=== PATIENT | male | born 2000 | race Hispanic/Latino ===

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

== ENCOUNTER 2020-06-06 05:27 | Emergency (ER) | payer SELFPAY | END 2020-06-06 05:54 | disposition home or self-care (01) | LOC: ERS 05:27 | DX: R11.2 Nausea with vomiting, unspecified (principal); F17.210 Nicotine dependence, cigarettes, uncomplicated | CPT/HCPCS: 99284 ==

== ENCOUNTER 2020-06-06 21:47 | Emergency (ER) | payer SELFPAY ==
[2020-06-06] MEDS ORDERED: Ondansetron PF 4 MG/2 ML Vial ONE (23:49)
[2020-06-07 00:01] LABS: Hemoglobin 15.5 g/dL (14.0-18.0); Mean Corpuscular HGB CONC 33.9 g/dL (32.0-36.0); Mean Corpuscular Hemoglobin 31.5 pg (27.0-31.0); Mean Corpuscular Volume 92.8 fL (78.0-98.0); Mean Platelet Volume 8.3 fL (7.4-10.4); Platelet Count 307 thou/uL (130-400); RBC Distribution Width 11.7 % (11.5-14.5); Red Blood Cell (RBC) Count 4.94 mill/uL (4.70-6.10)
[2020-06-07 00:10] LABS: ALT (SGPT) 18 U/L (8-55); AST (SGOT) 15 U/L (5-34); Albumin 4.7 g/dL (3.5-5.0); Alkaline Phosphatase 85 U/L (40-110); Anion Gap 14 mmol/L (10-20); BUN (Urea Nitrogen) 16 mg/dL (8.9-20.6); Calc. Creatinine Clearance 0 mL/min (70-130); Calcium 9.6 mg/dL (7.8-10.44); Carbon Dioxide 28 mmol/L (22-29); Chloride 102 mmol/L (98-107); Estimated GFR-MDRD Greater than 90; Glucose 112 mg/dL (70-105); Lipase 16 U/L (8-78); Potassium 3.3 mmol/L (3.5-5.1); Protein, Total 7.7 g/dL (6.0-8.3); Sodium 141 mmol/L (136-145)
[2020-06-07 00:21] LABS: Band 11 % (5-11); Lymphocytes 6 % (21-51); MDiff Complete? YES; Monocytes 6 % (0-10); Neutrophil 77 % (42-75); Platelet Morphology Comment Appears Adequate; RBC Morphology Normal
[2020-06-07] MEDS ORDERED: Ketorolac Tromethamine 30 MG/ML VIAL ONE (00:44)
== END 2020-06-07 01:48 | disposition home or self-care (01) ==
LOC: ERS 21:47
DX: R11.2 Nausea with vomiting, unspecified (principal); E86.0 Dehydration; F17.210 Nicotine dependence, cigarettes, uncomplicated; R10.9 Unspecified abdominal pain
CPT/HCPCS: 36415; 80053; 83690; 85025; 96374; 96375; J1885; J2405

== ENCOUNTER 2020-06-07 20:02 | Observation (INO) | payer SELFPAY ==
[~2020-06-07 20:02] MED LIST: Iopamidol-370 76% 500 ML 1 ML ONE
[2020-06-07 21:26] LABS: #Basophils 0.1 thou/uL (0.0-0.2); #Lymphocytes 1.8 thou/uL (1.20-3.40); #Monocytes 1.4 thou/uL (0.11-0.59); #Neutrophils 17.9 thou/uL (1.40-6.50); %Basophils 0.5 % (0.0-1.0); %Eosinophils 0.1 % (0.0-10.0); %Lymphocytes 8.7 % (21.0-51.0); %Monocytes 6.4 % (0.0-10.0); %Neutrophils 84.3 % (42.0-75.0); Hemoglobin 16.1 g/dL (14.0-18.0); Mean Corpuscular HGB CONC 34.2 g/dL (32.0-36.0); Mean Corpuscular Hemoglobin 31.7 pg (27.0-31.0); Mean Corpuscular Volume 92.5 fL (78.0-98.0); Mean Platelet Volume 8.3 fL (7.4-10.4); Platelet Count 313 thou/uL (130-400); RBC Distribution Width 11.5 % (11.5-14.5); Red Blood Cell (RBC) Count 5.07 mill/uL (4.70-6.10); White Blood Cell (WBC) Count 21.2 thou/uL (4.8-10.8)
[2020-06-07 21:47] LABS: ALT (SGPT) 19 U/L (8-55); AST (SGOT) 17 U/L (5-34); Albumin 4.9 g/dL (3.5-5.0); Alkaline Phosphatase 89 U/L (40-110); Anion Gap 18 mmol/L (10-20); BUN (Urea Nitrogen) 14 mg/dL (8.9-20.6); Bilirubin, Total 1.5 mg/dL (0.2-1.2); Calc. Creatinine Clearance 0 mL/min (70-130); Calcium 9.9 mg/dL (7.8-10.44); Carbon Dioxide 22 mmol/L (22-29); Chloride 103 mmol/L (98-107); Estimated GFR-MDRD Greater than 90; Globulin 3.2 g/dL (2.4-3.5); Glucose 123 mg/dL (70-105); Lipase 17 U/L (8-78); Potassium 3.3 mmol/L (3.5-5.1); Protein, Total 8.1 g/dL (6.0-8.3); Sodium 140 mmol/L (136-145)
--- NOTE | 2020-06-07 22:27 | CT ---
CT THORAX WITH CONTRAST CT ABDOMEN WITH CONTRAST CT PELVIS WITH CONTRAST: DATE: 06/07/2020 HISTORY: 20-year-old male with abdominal pain, nausea, vomiting, and chest pressure TECHNIQUE: IV iodinated contrast media: Administered Oral contrast media: Not administered Single phase scans of thorax, abdomen, and pelvis. FINDINGS: There is what appears to be a sliding hiatal hernia or dilated lower esophagus, filled with fluid, wi th mural thickening and mural enhancement, in the inferior aspect of the posterior mediastinum. Contiguous with that, the lower and mid esophagus also has diffuse mural thickening and increased mur al enhancement. There is periesophageal fat stranding in the mediastinum around the dilated portion of lower esophagus. There is no subcutaneous emphysema. Lungs are clear. No pleural effusion or pneumothorax. Trachea and major bronchi are patent and clear. No mediastinal lymphadenopathy, cardiomegaly, or pericardial effusion. Normal thoracic aorta. Liver, kidneys, adrenals, pancreas, spleen, appendix, urinary bladder, abdominal aorta, are normal. No small bowel dilation or colonic diverticulitis. No ascites or pneumoperitoneum. IMPRESSION: 1) esophagitis. 2) probable small sliding hiatal hernia. 3) endoscopy, on a nonemergent basis, may be useful.
[2020-06-07] MEDS ORDERED: Morphine 4 MG/ML VIAL ONE (22:33)
[2020-06-07] MEDS ORDERED: cefTRIAXone\\ROCEPHIN 1 GM VIAL ONE (22:33)
[2020-06-07] MEDS ORDERED: Ondansetron PF 4 MG/2 ML Vial ONE (22:33)
[2020-06-07] MEDS ORDERED: Pantoprazole 40 MG VIAL ONE (22:33)
[2020-06-07] MEDS ORDERED: Acetaminophen 325 MG TAB PO PRN (23:13)
[2020-06-07] MEDS ORDERED: Promethazine HCl 12.5 MG in Sodium Chloride 0.9% 50 ML IVPB PRN (23:14)
[2020-06-07 23:34] LABS: Bilirubin Negative (Negative); Blood, Urine Negative (Negative); Clarity Turbid (Clear); Glucose, Urine (Dipstick) Normal (Negative); Ketone, Urine 150 mg/dL (Negative); Leukocyte Negative Leu/uL (Negative); Nitrite Negative (Negative); Protein, Urine (Dipstick) 20 mg/dL (Neg-Trace); Urobilinogen Normal mg/dL (Less than 2); pH, Urine 8.5 (5.0-9.0)
[2020-06-07 23:35] LABS: Specific Gravity, Urine 1.043 (1.002-1.036)
[2020-06-07 23:43] LABS: Amphetamine Not Detected (NotDetected); Barbiturates Screen Not Detected (NotDetected); Benzodiazepine Screen Not Detected (NotDetected); Cocaine Metabolite Screen Not Detected (NotDetected); Medtox Control Line Valid? VALID (VALID); Medtox Reader # READER 1; Methadone Not Detected (NotDetected); Methamphetamine Not Detected (NotDetected); Opiate Screen Detected (NotDetected); Oxycodone Screen Not Detected (NotDetected); Phencyclidine (PCP) Not Detected (NotDetected); THC/Cannabinoid Screen Detected (NotDetected); Tricyclic Screen Not Detected (NotDetected)
--- NOTE | 2020-06-08 00:18 | PDOC.FPRHP ---
- History of Present Illness Chief Complaint: Intractable N/V History of Present Illness: Pt reports to ED today after visiting the ER two times this weekend N/V which started Sunday after patient admitted to ingesting "more alcohol than [he] normally drinks." He states that he initially thought he was hungover and was sent home with zofran which he admitted did not help with his symptoms. He has not been able to keep in PO intake. Today patient states that he had lost count of how many times he vomited. He admitted to seeing red spots in his emesis on Sunday and states that now his throat feels very sore. He admitted to CP earlier in the day which has not resolved as well as abdominal pain which is not as bot hersome today. He admits to using THC and states that his last use was Sunday, with his last intake of alcohol. ED Course: 1L NS, morphine, protonix, rocephin, zofran - Allergies/Adverse Reactions Allergies Allergy/AdvReac Type Severity Reaction Status Date / Time No Known Drug Allergies Allergy Unverified 06/07/20 23:23 - History PMHx: -none PSHx: -none FHx: -non contributory Social: -uses tobacco occasionally, uses MJ, drinks ETOH socially, no drug use - Review of Systems General: reports: weight/appetite/sleep changes. denies: fever/chills, night sweats, fatigue ENT: denies: nasal congestion, rhinorrhea Respiratory: denies: cough, congestion Cardiovascular: denies: chest pain, palpitation Gastrointestinal: reports: nausea, vomiting. denies: diarrhea, constipation Genitourinary: denies: incontinence, dysuria, polyuria Skin: denies: rashes Musculoskeletal: denies: pain, tenderness - Vital signs BP: 119/73, Pulse: 88, Resp: 18, Temp: 98.3 (Oral), Pain: 3, O2 sat: 98 on (Room Air), Time: 06/07/2020 23:20. - Physical Exam Constitutional: NAD, awake, alert and oriented HEENT: normocephalic and atraumatic, PERRLA Neck: supple Chest: no-tender to palpation Heart: RRR, normal S1/S2, no murmurs/rubs/gallops Lungs: CTAB, no respiratory distress, good air movement, no rales/rhonchi, no wheezing Abdomen: soft, non-tender, bowel sounds present, no masses/distention Musculoskeletal: normal structure Neurological: no focal deficit Skin: other (cap refill > 2 secs) Psychiatric: normal mood and affect, good judgment and insight, intact recent and remote memory FMR H&P: Results - Labs Result Diagrams: 06/08/20 02:35 06/08/20 02:34 Lab results: WBC 21.2 thou/uL (4.8-10.8) H 06/07/20 21:04 Hgb 16.1 g/dL (14.0-18.0) 06/07/20 21:04 Hct 46.9 % (42.0-52.0) 06/07/20 21:04 MCV 92.5 fL (78.0-98.0) 06/07/20 21:04 Plt Count 313 thou/uL (130-400) 06/07/20 21:04 Neutrophils % 84.3 % (42.0-75.0) H 06/07/20 21:04 Sodium 140 mmol/L (136-145) 06/07/20 21:04 Potassium 3.3 mmol/L (3.5-5.1) L 06/07/20 21:04 Chloride 103 mmol/L (98-107) 06/07/20 21:04 Carbon Dioxide 22 mmol/L (22-29) 06/07/20 21:04 BUN 14 mg/dL (8.9-20.6) 06/07/20 21:04 Creatinine 0.91 mg/dL (0.7-1.3) 06/07/20 21:04 Glucose 123 mg/dL (70-105) H 06/07/20 21:04 Lactic Acid 1.7 mmol/L (0.5-2.2) 06/07/20 21:46 Calcium 9.9 mg/dL (7.8-10.44) 06/07/20 21:04 Total Bilirubin 1.5 mg/dL (0.2-1.2) H 06/07/20 21:04 AST 17 U/L (5-34) 06/07/20 21:04 ALT 19 U/L (8-55) 06/07/20 21:04 Alkaline Phosphatase 89 U/L (40-110) 06/07/20 21:04 Serum Total Protein 8.1 g/dL (6.0-8.3) 06/07/20 21:04 Albumin 4.9 g/dL (3.5-5.0) 06/07/20 21:04 Lipase 17 U/L (8-78) 06/07/20 21:04 Urine Ketones 150 mg/dL (Negative) A 06/07/20 23:15 Urine Blood Negative (Negative) 06/07/20 23:15 Urine Nitrite Negative (Negative) 06/07/20 23:15 Ur Leukocyte Esterase Negative Chela/uL (Negative) 06/07/20 23:15 - EKG Interpretation EKG: sinus rhythm - Radiology Interpretation CT scan - abdomen Status: report reviewed by me (esophagitis, probable small sliding hital hernia) FMR H&P: A/P - Plan ##Intractable N/V -2/2 to alcohol, cannabinoid hyperemesis, esophagitis -lipase wnl -CT showed esophagitis and small sliding hiatal hernia -s/p morphine, protonix, zofran, and rocephin in ED, will not continue with rocephin as not concerned for varices -continue with nausea control with zofran and phenergan and morphine for pain -NPO at 12AM to consult GI in AM -continue mIVF s/p 1L bolus in ED -CMP in AM -ASE protocol, patient admitted last drink was Sat ##Mild Hypokalemia -K 3.3 -replete and recheck AM labs ##Hyperbilirubinemia -T bili 1.5 -CMP in AM ##Leukocytosis - WBC 21.2 - Likely 2/2 vomiting and dehydration. CBC in AM. ##UDS positive for opiates and cannabinoids - Received Morphine prior to testing - cannabinoids may have contributed to patient's N/V - encourage cessation CODE: FULL DIET: NPO at 12AM PCP: [facility] Dispo: admitted to medical. continue to monitor symptoms and consider GI consult in AM. FMR H&P: Upper Level - Plan Date/Time: 06/08/20 0018 Mr Guaman is a 20yo male who presented for the third time to the ED for nausea, vomiting and abdominal cramping. He was binge drinking Sat 06/06 where he drank entire bottle of whiskey went to sleep and nausea began at 1am. Thursday 06/07 he went to ED and was discharged with Zofran. He took it multiple times with minimal improvement. Abdominal pain worsened so he went back to the ED that evening. At that time he was treated with IVF, Zofran and Toradol. His symptoms improved and he was discharged home. Due to recurrence of symptoms he came in tonight. Tonight administered Zofran 4mg, Morphine 4mg which provided significant relief from nausea and vomiting. Reports the Morphine helped the most. Was also given 1L NS. Pantoprazole 80mg and Ceftriaxone for GI bleed cover age as he reported blood in emesis. PE: General: NAD however ill-appearing CV: RRR no murmur Pulm: CTA b/l Extremities: No edema, pedal pulses 2+ A/P: Intractable nausea - Lipase neg. DDx: Cannabinoid hyperemesis syndrome vs esophagitis vs alcohol induced. CT with sliding hiatal hernia or dilated lower esophagus, esophagitis. Will treat symptoms with Zofran and Phenergan PRN for nausea. Morphine PRN for pain and nausea. NPO for diet. Consult GI in AM to consider inpatient upper endoscopy. No acute bleed and no evidence of varices, will not continue abx. Monitor electrolytes and replace as needed. CMP in AM. Admit to medical Hyperbilirubinemia - CMP in AM. Likely 2/2 [place] syndrome vs alcohol use. Leukocytosis - Likely 2/2 vomiting and dehydration. CBC in AM. UDS positive for opiates - Received Morphine prior to testing Alcohol use - ASE protocol. Last drink Sat. Ativan PRN. No hx of withdrawals Cannabis use - Consider hyperemesis syndrome as above. Encourage cessation. I, Ariana Conklin, have evaluated this patient and agree with findings/plan as outlined by culinary intern resident. Pertinent changes/additions are listed here. Addendum - Attending - Attending Attestation Date/Time: 06/08/20 6789 I personally evaluated the patient and discussed the management with Dr. Amaro/Rubin. I agree with the History, Examination, Assessment and Plan documented above with any addition or exceptions noted below. Continue to control symptoms for intractable N/V. Possibly related to cannabis hyperemesis syndrome. will treat both. replete volume with IV fluids. Possible d/c tomorrow.
[2020-06-08] MEDS: Lactated Ringer's 1,000 ML IV SCH ×3 (00:23→16:21)
[2020-06-08] MEDS ORDERED: Potassium Chloride 40 MEQ in Sodium Chloride 0.9% 250 ML 250 ML IVPB SCH (01:00)
[2020-06-08 02:50] LABS: Hemoglobin 14.2 g/dL (14.0-18.0); Mean Corpuscular HGB CONC 34.1 g/dL (32.0-36.0); Mean Corpuscular Hemoglobin 31.8 pg (27.0-31.0); Mean Corpuscular Volume 93.1 fL (78.0-98.0); Mean Platelet Volume 7.9 fL (7.4-10.4); Platelet Count 273 thou/uL (130-400); RBC Distribution Width 11.5 % (11.5-14.5); Red Blood Cell (RBC) Count 4.48 mill/uL (4.70-6.10); White Blood Cell (WBC) Count 20.7 thou/uL (4.8-10.8)
[2020-06-08 03:01] LABS: Band 24 % (5-11); Lymphocytes 9 % (21-51); MDiff Complete? YES; Monocytes 6 % (0-10); Neutrophil 61 % (42-75); Platelet Morphology Comment Appears Adequate
[2020-06-08 03:22] LABS: ALT (SGPT) 13 U/L (8-55); AST (SGOT) 16 U/L (5-34); Alkaline Phosphatase 72 U/L (40-110); Anion Gap 16 mmol/L (10-20); BUN (Urea Nitrogen) 13 mg/dL (8.9-20.6); Bilirubin, Total 0.9 mg/dL (0.2-1.2); Calc. Creatinine Clearance 0 mL/min (70-130); Calcium 8.4 mg/dL (7.8-10.44); Carbon Dioxide 22 mmol/L (22-29); Chloride 108 mmol/L (98-107); Estimated GFR-MDRD Greater than 90; Globulin 2.7 g/dL (2.4-3.5); Glucose 113 mg/dL (70-105); Potassium 4.1 mmol/L (3.5-5.1); Protein, Total 6.7 g/dL (6.0-8.3); Sodium 142 mmol/L (136-145)
[2020-06-08] MEDS ORDERED: Morphine 4 MG/ML VIAL ONE (04:34)
[2020-06-08] MEDS: Morphine 2 MG/ML VIAL SLOW IVP PRN ×3 (04:36→23:05)
[2020-06-08] MEDS: Ondansetron PF 4 MG/2 ML Vial IVP PRN ×3 (04:37→23:02)
[2020-06-08] MEDS ORDERED: Ondansetron PF 4 MG/2 ML Vial ONE (04:38)
[2020-06-08] MEDS ORDERED: Haloperidol Lactate 5 MG/ML VIAL SLOW IVP SCH (08:45)
[2020-06-08] MEDS ORDERED: Famotidine/PF 20 mg/2ml Vial SLOW IVP SCH (09:00)
[2020-06-08] MEDS ORDERED: Haloperidol Lactate 5 MG/ML VIAL ONE (09:19)
[2020-06-08] MEDS ORDERED: Famotidine/PF 20 mg/2ml Vial ONE (09:19)
[2020-06-08] MEDS ORDERED: Multivitamin W/ Minerals 1 TAB ONE (10:33)
[2020-06-08] MEDS ORDERED: Promethazine HCl 25 MG/ML VIAL ONE (10:37)
--- NOTE | 2020-06-08 10:57 | PDOC.BPN ---
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 added capsacin cream as recommended for more treatment for the cannabis hyperemesis. will start a clear liquid diet today. if tolerates well, plan is d/c home with 8 weeks PPI use and f/u outpt with GI.
[2020-06-08] MEDS ORDERED: Mag-Al 1200 mg/1200 mg/30 ML UDCUP ONE (12:36)
[2020-06-08] MEDS ORDERED: Lidocaine Viscous Sol 2% 15 ml UD Cup ONE (12:36)
[2020-06-08] MEDS: Multivitamin W/ Minerals 1 TAB PO SCH (12:45)
[2020-06-08 14:17] LABS: SARS-CoV-2 MS2 Positive; SARS-CoV-2 N Gene Negative; SARS-CoV-2 S Gene Negative; SARS-CoV-2 by NAA Not Detected (NotDetected); SARS-CoV-2 orf1ab Negative
[2020-06-08] MEDS: Capsaicin 0.025% Cream 60 gm Tube TOP PRN (18:10)
--- NOTE | 2020-06-09 06:26 | PDOC.FM ---
- Subjective Subjective: No acute events overnight. Patient reports improvement in his N/V and abdominal pain. He does reports an episode of abdominal pain overnight that spread to his chest. He tolerated minimal liquids overnight, but reports abdominal pain with jello. Passing gas. No N/V overnight. - Objective MAR Reviewed: Yes Vital Signs & Weight: Vital Signs (12 hours) Temp Pulse Resp BP Pulse Ox 06/08/20 20:50 98.1 F 90 20 130/64 99 Weight Weight 220 g I&O: 06/07/20 06/08/20 06/09/20 06:59 06:59 06:59 Intake Total 991 Output Total 275 Balance 716 Result Diagrams: 06/09/20 06:51 06/09/20 06:51 Phys Exam - Physical Examination Constitutional: NAD HEENT: moist MMs Neck: supple, full ROM Respiratory: no wheezing, no rales, no rhonchi, clear to auscultation bilateral Cardiovascular: RRR, no significant murmur Gastrointestinal: soft, non-tender, no distention, positive bowel sounds Musculoskeletal: no edema Neurological: moves all 4 limbs Psychiatric: normal affect Skin: no rash Dx/Plan - Plan Plan: Intractable N/V -2/2 to alcohol, cannabinoid hyperemesis, esophagitis -lipase wnl -CT: esophagitis and small sliding hiatal hernia -s/p morphine, protonix, zofran, and rocephin in ED, will not continue with rocephin as not concerned for varices -continue with nausea control with zofran and phenergan and morphine for pain -received haldol 2 mg today for the Cyclic vomiting syndrome from cannabis use -added capsacin cream as recommended for more treatment for the cannabis hyperemesis, reports relief -started on clear liquid diet yesterday, will attempt bland diet today -GI cocktail ordered -if tolerated diet, likely DC home today with PPI x 8 wks and outpt GI f/u -ASE protocol, patient admitted last drink was Sat Mild Hypokalemia, resolved -K 3.3 > 4.1 > 3.6 -will monitor and replace as needed Hyperbilirubinemia, resolved -T bili 1.5 > 0.9 > 1.2 -possible Gilbert's Leukocytosis, improving - WBC 21.2 > 14.4 - Likely 2/2 vomiting and dehydration. CBC in AM. UDS positive for opiates and cannabinoids - Received Morphine prior to testing - cannabinoids may have contributed to patient's N/V - encourage cessation Dispo: likely dc home pending PO intake Addendum - Attending - Attending Attestation Date/Time: 06/09/20 6718 I personally evaluated the patient and discussed the management with . [] I agree with the History, Examination, Assessment and Plan documented above with any addition or exceptions noted below. He is complaining of 10/10 pain which he say only a shower will help. Haldol helped yesterday for pain. will repeat today. If no improvement, will consult GI for recommendations. Repeat CXR to evaluate for free air in the mediastinum and lipase to check for superimposed pancreatitis. Patient states a shower it the only thing that is helping his pain. Labs otherwise WNL. Will also try SL nitro for esophageal spasm. Given the significant inflammation on his CT, I anticipte he will experience discomfort for a while while his stomach and esophagus heal.
[2020-06-09 08:09] LABS: ALT (SGPT) 11 U/L (8-55); AST (SGOT) 13 U/L (5-34); Alkaline Phosphatase 72 U/L (40-110); Anion Gap 13 mmol/L (10-20); BUN (Urea Nitrogen) 10 mg/dL (8.9-20.6); Bilirubin, Total 1.2 mg/dL (0.2-1.2); Calc. Creatinine Clearance 0 mL/min (70-130); Calcium 8.8 mg/dL (7.8-10.44); Carbon Dioxide 22 mmol/L (22-29); Chloride 104 mmol/L (98-107); Estimated GFR-MDRD Greater than 90; Globulin 2.7 g/dL (2.4-3.5); Glucose 77 mg/dL (70-105); Potassium 3.6 mmol/L (3.5-5.1); Protein, Total 6.7 g/dL (6.0-8.3); Sodium 135 mmol/L (136-145)
[2020-06-09] MEDS: Lactated Ringer's 1,000 ML IV SCH ×3 (08:22→17:12)
[2020-06-09 08:32] LABS: Band 8 % (5-11); Eosinophils 1 % (0-10); Hemoglobin 14.4 g/dL (14.0-18.0); Lymphocytes 27 % (21-51); MDiff Complete? YES; Mean Corpuscular HGB CONC 34.7 g/dL (32.0-36.0); Mean Corpuscular Hemoglobin 32.5 pg (27.0-31.0); Mean Corpuscular Volume 93.7 fL (78.0-98.0); Mean Platelet Volume 8.7 fL (7.4-10.4); Monocytes 2 % (0-10); Neutrophil 49 % (42-75); Platelet Count 242 thou/uL (130-400); Platelet Morphology Comment Appears Adequate; RBC Distribution Width 11.3 % (11.5-14.5); RBC Morphology Normal; Reactive Lymphocytes 13 % (0-10); Red Blood Cell (RBC) Count 4.44 mill/uL (4.70-6.10); White Blood Cell (WBC) Count 14.4 thou/uL (4.8-10.8)
[2020-06-09] MEDS ORDERED: Lidocaine 2% Viscous Solution 10 ML, Aluminum & Magnesium Hydroxide 30 ML SSW SCH (08:45)
[2020-06-09] MEDS ORDERED: FLU VACC QS2020-21(6MOS UP)/PF 60 MCG/0.5 ML SYRINGE IM ONE (09:00)
[2020-06-09] MEDS: Morphine 2 MG/ML VIAL SLOW IVP PRN (09:05)
[2020-06-09] MEDS: Capsaicin 0.025% Cream 60 gm Tube TOP PRN (09:12)
[2020-06-09] MEDS: Multivitamin W/ Minerals 1 TAB PO SCH (09:15)
[2020-06-09] MEDS: Ondansetron PF 4 MG/2 ML Vial IVP PRN ×2 (09:36→18:26)
[2020-06-09] MEDS ORDERED: Haloperidol Lactate 5 MG/ML VIAL SLOW IVP PRN (10:39)
[2020-06-09] MEDS ORDERED: Nitroglycerin 0.4 MG TAB (25 Tab Bottle) SL SCH (11:00)
--- NOTE | 2020-06-09 13:41 | RAD ---
PORTABLE CHEST: 06/09/20 HISTORY: Chest pain. Lungs are clear. No infiltrate or vascular congestion. Heart and mediastinum unremarkable. IMPRESSION: No acute process. POS: [facility]
[2020-06-09] MEDS ORDERED: Lidocaine Viscous Sol 2% 15 ml UD Cup SSW PRN (14:03)
[2020-06-09] MEDS ORDERED: Mag-Al Plus 1200 MG/1200 MG/120 MG/30 ML UDCUP PO PRN (14:04)
[2020-06-09] MEDS: Sucralfate 1 GM TAB PO SCH ×2 (17:11→21:00)
[2020-06-10] MEDS: Lactated Ringer's 1,000 ML IV SCH ×2 (02:52→12:44)
[2020-06-10 05:54] LABS: Band 2 % (5-11); Eosinophils 2 % (0-10); Hemoglobin 14.7 g/dL (14.0-18.0); Lymphocytes 19 % (21-51); MDiff Complete? YES; Mean Corpuscular HGB CONC 32.7 g/dL (32.0-36.0); Mean Corpuscular Hemoglobin 29.9 pg (27.0-31.0); Mean Corpuscular Volume 91.6 fL (78.0-98.0); Mean Platelet Volume 7.6 fL (7.4-10.4); Monocytes 5 % (0-10); Neutrophil 70 % (42-75); Platelet Count 278 thou/uL (130-400); Platelet Morphology Comment Appears Adequate; RBC Distribution Width 11.3 % (11.5-14.5); Reactive Lymphocytes 2 % (0-10); Red Blood Cell (RBC) Count 4.92 mill/uL (4.70-6.10); White Blood Cell (WBC) Count 15.6 thou/uL (4.8-10.8)
[2020-06-10 05:56] LABS: ALT (SGPT) 10 U/L (8-55); AST (SGOT) 13 U/L (5-34); Albumin 4.2 g/dL (3.5-5.0); Alkaline Phosphatase 75 U/L (40-110); Anion Gap 12 mmol/L (10-20); BUN (Urea Nitrogen) 8 mg/dL (8.9-20.6); Calc. Creatinine Clearance 0 mL/min (70-130); Carbon Dioxide 28 mmol/L (22-29); Chloride 102 mmol/L (98-107); Estimated GFR-MDRD Greater than 90; Globulin 2.8 g/dL (2.4-3.5); Glucose 96 mg/dL (70-105); Potassium 3.3 mmol/L (3.5-5.1); Sodium 139 mmol/L (136-145)
--- NOTE | 2020-06-10 06:04 | PDOC.FM ---
- Subjective Subjective: Per nursing, patient did not have any episodes of N/V overnight. She reports that he did well and had no complaints. Patient took multiple showers yesterday with relief. On my rounds this morning, patient was resting comfortably in bed. He was very pleasant and smiling. He denied any current abdominal pain or chest pain. He confirmed that he was able to tolerate the jello. - Objective MAR Reviewed: Yes Vital Signs & Weight: Vital Signs (12 hours) Temp Pulse Resp BP BP Pulse Ox 06/10/20 00:20 98.6 F 58 L 18 131/75 06/09/20 23:32 98.6 F 58 L 18 131/75 06/09/20 19:23 98.7 F 65 12 130/79 100 Weight Weight 220 g I&O: 06/08/20 06/09/20 06/10/20 06:59 06:59 06:59 Intake Total 2431 2034 Output Total 275 Balance 2155 2034 Result Diagrams: 06/10/20 05:24 06/10/20 05:23 Phys Exam - Physical Examination Constitutional: NAD HEENT: moist MMs Neck: no JVD, supple, full ROM Respiratory: no wheezing, no rales, no rhonchi, clear to auscultation bilateral Cardiovascular: RRR, no significant murmur Gastrointestinal: soft, non-tender, no distention, positive bowel sounds Musculoskeletal: no edema Neurological: moves all 4 limbs Psychiatric: normal affect Skin: no rash Dx/Plan - Plan Plan: Intractable N/V -2/2 to alcohol, cannabinoid hyperemesis, esophagitis -lipase wnl x2 -CT: esophagitis and small sliding hiatal hernia -CXR yesterday: normal -s/p morphine, protonix, zofran, and rocephin in ED, rocephin not continued -will schedule phenergan to be given before meals today, zofran and morphine still available prn -haldol prn and capsacin cream as recommended for treatment for the cannabis hyperemesis, reports relief -able to tolerate jello overnight, gets relief with hot showed, encouraged showers as needed -increased PPI to BID, added maalox (prn) and sucralfate -if tolerating diet, likely DC home today with PPI x 8 wks and outpt GI f/u -ASE protocol, patient admitted last drink was Sat -will DC fluids Mild Hypokalemia, resolved -K 3.3 > 4.1 > 3.6 > 3.3 -will replace -will monitor and replace as needed Hyperbilirubinemia, resolved -T bili 1.5 > 0.9 > 1.2 -possible Gilbert's Leukocytosis, improving - WBC 21.2 > 14.4 > 15.6 - Likely 2/2 vomiting and dehydration. CBC in AM. UDS positive for opiates and cannabinoids - Received Morphine prior to testing - cannabinoids may have contributed to patient's N/V - encourage cessation Dispo: likely dc home pending PO intake Addendum - Attending - Attending Attestation Date/Time: 06/10/20 [id number] I personally evaluated the patient and discussed the management with Dr. Paredes. I agree with the History, Examination, Assessment and Plan documented above with any addition or exceptions noted below. D/C home.
[2020-06-10] MEDS ORDERED: Potassium Chloride 20 MEQ in Premix Bag 1 BAG IVPB SCH (08:00)
[2020-06-10] MEDS: Sucralfate 1 GM TAB PO SCH ×2 (08:25→12:44)
[2020-06-10] MEDS: Multivitamin W/ Minerals 1 TAB PO SCH (08:25)
[2020-06-10] MEDS ORDERED: FLU VACC QS2020-21(6MOS UP)/PF 60 MCG/0.5 ML SYRINGE IM ONE (11:15)
[2020-06-10] MEDS ORDERED: Promethazine HCl 12.5 MG in Sodium Chloride 0.9% 50 ML IVPB SCH (11:30)
[2020-06-10 11:46] VITALS: BP 139/94; TEMP 98.4
--- NOTE | 2020-06-12 15:33 | EKG ---
Test Reason : Blood Pressure : / mmHG Vent. Rate : 059 BPM Atrial Rate : 059 BPM P-R Int : 134 ms QRS Dur : 114 ms QT Int : 406 ms P-R-T Axes : -64 061 053 degrees QTc Int : 401 ms Normal sinus rhythm with occasional Premature ventricular complexes Otherwise normal EKG Confirmed by SAGAR ACKERMAN, GHAZALA Lynn ([id number]), advertising editor CARLOS CALDERON ([id number]) on 06/12/2020 3:33:14 PM Referred By: Confirmed By:GHAZALA KIETH MD
== END 2020-06-10 13:10 | disposition home or self-care (01) ==
LOC: ERS 20:02 → INTOOBSV 22:44 → ERHOLD 22:44 → 3SW 06-08 14:09
PROVIDERS: ADMIT Family Medicine; ATTEND Family Medicine
DX: K20.90 Esophagitis, unspecified without bleeding (principal); R11.2 Nausea with vomiting, unspecified; F12.10 Cannabis abuse, uncomplicated; R11.15 Cyclical vomiting syndrome unrelated to migraine; R07.89 Other chest pain; K44.9 Diaphragmatic hernia without obstruction or gangrene; E87.6 Hypokalemia; E80.6 Other disorders of bilirubin metabolism; D72.829 Elevated white blood cell count, unspecified; F17.210 Nicotine dependence, cigarettes, uncomplicated; Z20.828 Contact with and (suspected) exposure to other viral communicable diseases
CPT/HCPCS: 36415; 71045; 71260; 74177; 80053; 80306; 80307; 81003; 83605; 83690; 84484; 85007; 85025; 85027; 87635; 93005; 96374; 96375; 96376; C9113; G0378; J0696; J1630; J2270; J2405; J2550; J3411; J3480; J7050; Q9967; S0028; U0003

== ENCOUNTER 2022-11-10 19:03 | Emergency (ER) | payer BC, SELFPAY ==
[2022-11-10] MEDS ORDERED: Ondansetron PF 4 MG/2 ML Vial ONE (19:48)
[2022-11-10 20:14] LABS: Hemoglobin 16.6 g/dL (14.0-18.0); Mean Corpuscular Hemoglobin 31.9 pg (27.0-31.0); Mean Corpuscular Volume 91.1 fl (78.0-98.0); Mean Platelet Volume 7.8 fL (7.4-10.4); Platelet Count 307 10x3/uL (130-400); RBC Distribution Width 11.6 % (11.5-14.5); Red Blood Cell (RBC) Count 5.21 mill/uL (4.70-6.10); White Blood Cell (WBC) Count 20.4 10x3/uL (4.8-10.8)
[2022-11-10] MEDS ORDERED: Mag-Al 1200 mg/1200 mg/30 ML UDCUP ONE (20:21)
[2022-11-10] MEDS ORDERED: Pantoprazole 40 MG VIAL ONE (20:21)
[2022-11-10] MEDS ORDERED: Lidocaine Viscous Sol 2% 15 ml UD Cup ONE (20:21)
[2022-11-10 20:26] LABS: ALT (SGPT) 22 U/L (8-55); AST (SGOT) 19 U/L (5-34); Albumin 5.3 g/dL (3.5-5.0); Alkaline Phosphatase 109 U/L (40-110); Anion Gap 16 mmol/L (10-20); BUN (Urea Nitrogen) 11 mg/dL (8.9-20.6); Bilirubin, Total 0.6 mg/dL (0.2-1.2); Calc. Creatinine Clearance 0 mL/min (70-130); Calcium 10.8 mg/dL (7.8-10.44); Carbon Dioxide 25 mmol/L (22-29); Chloride 101 mmol/L (98-107); Estimated GFR 120; Globulin 3.6 g/dL (2.4-3.5); Glucose 113 mg/dL (70-105); Lipase 23 U/L (8-78); Potassium 3.4 mmol/L (3.5-5.1); Protein, Total 8.9 g/dL (6.0-8.3); Sodium 139 mmol/L (136-145)
[2022-11-10 20:41] LABS: Lymphocytes 20 % (21-51); MDiff Complete? YES; Monocytes 7 % (0-10); Neutrophil 73 % (42-75); Platelet Morphology Comment Appears Adequate; Stomatocytes SLIGHT = 2-5 cells (100X) (0-1/hpf)
[2022-11-10] MEDS ORDERED: Haloperidol Lactate 5 MG/ML VIAL ONE (20:46)
[2022-11-10] MEDS ORDERED: Ketorolac Tromethamine 30 MG/ML VIAL ONE (20:46)
[2022-11-10 20:59] LABS: Bacteria/HPF None Seen HPF (None Seen); Bilirubin Negative (Negative); Blood, Urine Negative (Negative); Clarity Clear (Clear); Glucose, Urine (Dipstick) Normal (Negative); Ketone, Urine 40 mg/dL (Negative); Leukocyte Negative Leu/uL (Negative); Nitrite Negative (Negative); Protein, Urine (Dipstick) 70 mg/dL (Neg-Trace); RBC/HPF 0-3 HPF (0-3); Specific Gravity, Urine 1.029 (1.002-1.036); Squamous Epithelial None Seen HPF (0-3); Urobilinogen Normal mg/dL (Less than 2); WBC/HPF 0-3 HPF (0-3); pH, Urine 8.5 (5.0-9.0)
== END 2022-11-10 23:10 | disposition home or self-care (01) ==
LOC: ERS 19:03
DX: R10.13 Epigastric pain (principal); F12.10 Cannabis abuse, uncomplicated; R11.2 Nausea with vomiting, unspecified; D72.829 Elevated white blood cell count, unspecified; Z87.891 Personal history of nicotine dependence
CPT/HCPCS: 80053; 81003; 81015; 83690; 85025; 96361; 96374; 96375; C9113; J1630; J1885; J2405

== ENCOUNTER 2023-06-04 13:25 | Emergency (ER) | payer BC, SELFPAY ==
[2023-06-04 13:57] LABS: #Basophils 0.1 thou/uL (0.0-0.2); #Eosinphils 0.1 thou/uL (0.0-0.7); #Monocytes 1.3 thou/uL (0.11-0.59); #Neutrophils 14.4 thou/uL (1.40-6.50); %Basophils 0.3 % (0.0-1.0); %Eosinophils 0.6 % (0.0-10.0); %Lymphocytes 12.9 % (21.0-51.0); %Neutrophils 78.8 % (42.0-75.0); Hematocrit 43.9 % (42.0-52.0); Hemoglobin 14.9 g/dL (14.0-18.0); Mean Corpuscular HGB CONC 33.9 g/dL (32.0-36.0); Mean Corpuscular Volume 91.3 fl (78.0-98.0); Platelet Count 348 10x3/uL (130-400); RBC Distribution Width 12.5 % (11.5-14.5); Red Blood Cell (RBC) Count 4.81 mill/uL (4.70-6.10); White Blood Cell (WBC) Count 18.2 10x3/uL (4.8-10.8)
[2023-06-04 14:21] LABS: ALT (SGPT) 17 U/L (8-55); AST (SGOT) 16 U/L (5-34); Albumin 5.2 g/dL (3.5-5.0); Alkaline Phosphatase 82 U/L (40-110); Anion Gap 14 mmol/L (10-20); BUN (Urea Nitrogen) 10 mg/dL (8.9-20.6); Bilirubin, Total 0.8 mg/dL (0.2-1.2); Calc. Creatinine Clearance 0 mL/min (70-130); Calcium 9.8 mg/dL (7.8-10.44); Carbon Dioxide 23 mmol/L (22-29); Chloride 105 mmol/L (98-107); Estimated GFR 124; Globulin 2.4 g/dL (2.4-3.5); Glucose 126 mg/dL (70-105); Lipase 20 U/L (8-78); Potassium 3.3 mmol/L (3.5-5.1); Protein, Total 7.6 g/dL (6.0-8.3); Sodium 139 mmol/L (136-145)
[2023-06-04] MEDS ORDERED: Ondansetron PF 4 MG/2 ML Vial ONE (14:36)
[2023-06-04] MEDS ORDERED: Pantoprazole 40 MG VIAL ONE (14:36)
[2023-06-04] MEDS ORDERED: Dicyclomine 20 MG/2 ML VIAL ONE (14:36)
[2023-06-04 15:31] LABS: Bacteria/HPF None Seen HPF (None Seen); Bilirubin Negative (Negative); Blood, Urine Negative (Negative); CAUTI Indications for Culture Pelvic or flank pain; Clarity Extra Turbid (Clear); Glucose, Urine (Dipstick) Normal (Negative); Ketone, Urine 40 mg/dL (Negative); Leukocyte Negative Leu/uL (Negative); Nitrite Negative (Negative); Protein, Urine (Dipstick) 30 mg/dL (Neg-Trace); RBC/HPF 0-3 HPF (0-3); Specific Gravity, Urine 1.026 (1.002-1.036); Squamous Epithelial 0-3 HPF (0-3); Urobilinogen Normal mg/dL (Less than 2); WBC/HPF None Seen HPF (0-3); pH, Urine 8.5 (5.0-9.0)
[2023-06-04 15:32] LABS: Urine Culture Reflex No No
[2023-06-04 15:36] LABS: Amphetamine Not Detected (NotDetected); Barbiturates Screen Not Detected (NotDetected); Benzodiazepine Screen Not Detected (NotDetected); Cocaine Metabolite Screen Not Detected (NotDetected); Methadone Not Detected (NotDetected); Methamphetamine Not Detected (NotDetected); Opiate Screen Detected (NotDetected); Oxycodone Screen Not Detected (NotDetected); Phencyclidine (PCP) Not Detected (NotDetected); THC/Cannabinoid Screen Detected (NotDetected); Tricyclic Screen Not Detected (NotDetected)
[2023-06-04] MEDS ORDERED: diphenhydrAMINE 50 MG/ML VIAL ONE (15:45)
[2023-06-04] MEDS ORDERED: Prochlorperazine 10 MG/2 ML VIAL ONE (15:46)
== END 2023-06-04 17:59 | disposition home or self-care (01) ==
LOC: ERS 13:25
DX: R10.13 Epigastric pain (principal); R11.10 Vomiting, unspecified; Z87.891 Personal history of nicotine dependence
CPT/HCPCS: 36415; 80053; 80306; 81001; 83690; 85025; 96372; 96374; 96375; C9113; J0780; J1200; J2405

== ENCOUNTER 2025-02-18 08:12 | Emergency (ER) | payer OTHER, SELFPAY ==
[2025-02-18 09:05] LABS: #Basophils 0.07 10x3/uL (0.0-0.2); #Eosinophils 0.03 10x3/uL (0.0-0.7); #Monocytes 0.89 10x3/uL (0.11-0.59); #Neutrophils 15.08 10x3/uL (1.40-6.50); %Basophils 0.4 % (0.0-1.0); %Eosinophils 0.2 % (0.0-10.0); %Lymphocytes 11.4 % (21.0-51.0); %Monocytes 4.9 % (0.0-10.0); %Neutrophils 82.8 % (42.0-75.0); Hematocrit 43.8 % (42.0-52.0); Hemoglobin 15.4 g/dL (14.0-18.0); Mean Corpuscular Hemoglobin 30.7 pg (27.0-31.0); Mean Corpuscular Volume 87.3 fL (78.0-98.0); Platelet Count 346 10x3/uL (130-400); Red Blood Cell (RBC) Count 5.02 mill/uL (4.70-6.10); White Blood Cell (WBC) Count 18.19 10x3/uL (4.8-10.8)
[2025-02-18 09:28] LABS: ALT (SGPT) 37 U/L (Less than 45); AST (SGOT) 30 U/L (11-34); Albumin 4.7 g/dL (3.1-4.5); Alkaline Phosphatase 92 U/L (40-110); Anion Gap 15 mmol/L (10-20); BUN (Urea Nitrogen) 16 mg/dL (8.9-20.6); Bilirubin, Total 1.1 mg/dL (0.3-1.2); Calc. Creatinine Clearance 0 mL/min (70-130); Calcium 9.8 mg/dL (7.8-10.44); Carbon Dioxide 23 mmol/L (22-29); Chloride 104 mmol/L (98-107); Globulin 3.7 g/dL (2.4-3.5); Glucose 116 mg/dL (70-105); Lipase 26 U/L (8-78); Potassium 3.5 mmol/L (3.5-5.1); Sodium 138 mmol/L (136-145)
[2025-02-18] MEDS ORDERED: Metoclopramide HCl 10 MG (2 mL) VIAL ONE (09:46)
== END 2025-02-18 11:15 | disposition home or self-care (01) ==
LOC: ERS 08:12
DX: K20.90 Esophagitis, unspecified without bleeding (principal); R11.10 Vomiting, unspecified
CPT/HCPCS: 36415; 80053; 83690; 85025; 96365; J2765

== ENCOUNTER 2025-02-21 08:10 | Emergency (ER) | payer OTHER ==
[2025-02-21] MEDS ORDERED: Prochlorperazine 10 MG/2 ML VIAL ONE ×2 (08:42→11:47)
[2025-02-21] MEDS ORDERED: Pantoprazole 40 MG VIAL ONE (08:42)
[2025-02-21 09:11] LABS: ALT (SGPT) 32 U/L (Less than 45); AST (SGOT) 29 U/L (11-34); Albumin 4.8 g/dL (3.1-4.5); Alkaline Phosphatase 81 U/L (40-110); Anion Gap 17 mmol/L (10-20); BUN (Urea Nitrogen) 13 mg/dL (8.9-20.6); Bilirubin, Total 1.1 mg/dL (0.3-1.2); CK (CPK) 103 U/L (30-200); Calc. Creatinine Clearance 0 mL/min (70-130); Calcium 9.5 mg/dL (7.8-10.44); Carbon Dioxide 22 mmol/L (22-29); Chloride 105 mmol/L (98-107); Globulin 3.1 g/dL (2.4-3.5); Glucose 123 mg/dL (70-105); Lipase 48 U/L (8-78); Magnesium 2.1 mg/dL (1.6-2.6); Potassium 3.1 mmol/L (3.5-5.1); Sodium 141 mmol/L (136-145)
[2025-02-21 09:31] LABS: #Basophils 0.06 10x3/uL (0.0-0.2); #Eosinophils 0.07 10x3/uL (0.0-0.7); #Monocytes 1.18 10x3/uL (0.11-0.59); #Neutrophils 12.00 10x3/uL (1.40-6.50); %Basophils 0.4 % (0.0-1.0); %Eosinophils 0.4 % (0.0-10.0); %Lymphocytes 15.8 % (21.0-51.0); %Monocytes 7.4 % (0.0-10.0); %Neutrophils 75.3 % (42.0-75.0); Hematocrit 41.2 % (42.0-52.0); Hemoglobin 14.9 g/dL (14.0-18.0); Mean Corpuscular Hemoglobin 30.6 pg (27.0-31.0); Mean Corpuscular Volume 84.6 fL (78.0-98.0); Platelet Count 362 10x3/uL (130-400); Red Blood Cell (RBC) Count 4.87 mill/uL (4.70-6.10); White Blood Cell (WBC) Count 15.93 10x3/uL (4.8-10.8)
[2025-02-21 10:12] LABS: Bacteria/HPF None Seen HPF (None Seen); CAUTI Indications for Culture Dysuria,urgency,freq; Glucose, Urine (Dipstick) Normal (Negative); Leukocyte Negative Leu/uL (Negative); Protein, Urine (Dipstick) 30 mg/dL (Neg-Trace); RBC/HPF 0-3 HPF (0-3); Specific Gravity, Urine 1.037 (1.002-1.036); WBC/HPF 0-3 HPF (0-3)
[2025-02-21 10:16] LABS: Urine Culture Reflex No No
[2025-02-21 10:28] LABS: Cocaine Metabolite Screen Negative (Negative); THC/Cannabinoid Screen PRELIM POSITIVE (Negative); Tricyclic Screen Negative (Negative)
[2025-02-21] MEDS ORDERED: Dicyclomine 20 MG TAB ONE (11:05)
== END 2025-02-21 11:53 | disposition home or self-care (01) ==
LOC: ERS 08:10
DX: K20.90 Esophagitis, unspecified without bleeding (principal); E86.0 Dehydration; E87.6 Hypokalemia; R16.0 Hepatomegaly, not elsewhere classified; R11.2 Nausea with vomiting, unspecified
CPT/HCPCS: 74019; 76705; 80053; 80306; 81001; 82550; 83690; 83735; 85025; 93005; 96361; 96374; 96375; 96376; J0780; J2470

== ENCOUNTER 2025-02-26 16:40 | Inpatient (IN) | payer OTHER ==
[2025-02-26 17:17] LABS: #Basophils 0.06 10x3/uL (0.0-0.2); #Eosinophils 0.10 10x3/uL (0.0-0.7); #Monocytes 1.73 10x3/uL (0.11-0.59); #Neutrophils 10.08 10x3/uL (1.40-6.50); %Basophils 0.4 % (0.0-1.0); %Eosinophils 0.6 % (0.0-10.0); %Lymphocytes 22.8 % (21.0-51.0); %Monocytes 11.1 % (0.0-10.0); %Neutrophils 64.8 % (42.0-75.0); Hematocrit 41.2 % (42.0-52.0); Hemoglobin 14.9 g/dL (14.0-18.0); Mean Corpuscular Hemoglobin 30.5 pg (27.0-31.0); Mean Corpuscular Volume 84.3 fL (78.0-98.0); Platelet Count 392 10x3/uL (130-400); Red Blood Cell (RBC) Count 4.89 mill/uL (4.70-6.10); White Blood Cell (WBC) Count 15.58 10x3/uL (4.8-10.8)
[2025-02-26] MEDS ORDERED: Ondansetron PF 4 MG/2 ML Vial ONE ×2 (17:21→19:39)
[2025-02-26 17:37] LABS: ALT (SGPT) 22 U/L (Less than 45); AST (SGOT) 18 U/L (11-34); Albumin 5.1 g/dL (3.1-4.5); Alkaline Phosphatase 75 U/L (40-110); Anion Gap 17 mmol/L (10-20); BUN (Urea Nitrogen) 9 mg/dL (8.9-20.6); Bilirubin, Total 0.8 mg/dL (0.3-1.2); Calc. Creatinine Clearance 0 mL/min (70-130); Calcium 9.7 mg/dL (7.8-10.44); Carbon Dioxide 25 mmol/L (22-29); Chloride 99 mmol/L (98-107); Globulin 3.1 g/dL (2.4-3.5); Glucose 105 mg/dL (70-105); Lipase 57 U/L (8-78); Potassium 2.9 mmol/L (3.5-5.1); Sodium 138 mmol/L (136-145)
[2025-02-26] MEDS ORDERED: Potassium Chloride 20 MEQ (100 mL) BAG ONE (17:52)
[2025-02-26] MEDS ORDERED: Sucralfate 1 GM TAB PO SCH (19:00)
[2025-02-26] MEDS: Ondansetron PF 4 MG/2 ML Vial IVP SCH (20:38)
[2025-02-26] MEDS ORDERED: Pantoprazole 40 MG DR.TAB PO SCH (21:00)
[2025-02-26 21:30] LABS: Magnesium 2.0 mg/dL (1.6-2.6)
[2025-02-26] MEDS: Sucralfate 1 GM TAB PO SCH (21:42)
[2025-02-26] MEDS: Pantoprazole 40 MG VIAL IVP SCH (21:43)
[2025-02-26] MEDS: Lidocaine 2% Viscous Solution 10 ML, Aluminum & Magnesium Hydroxide 30 ML SSW SCH (21:45)
[2025-02-26] MEDS: Metoclopramide HCl 10 MG (2 mL) VIAL IVP SCH ×2 (22:00→23:06)
[2025-02-27 04:45] LABS: #Basophils 0.06 10x3/uL (0.0-0.2); #Eosinophils 0.06 10x3/uL (0.0-0.7); #Monocytes 1.36 10x3/uL (0.11-0.59); #Neutrophils 9.50 10x3/uL (1.40-6.50); %Basophils 0.4 % (0.0-1.0); %Eosinophils 0.4 % (0.0-10.0); %Lymphocytes 20.9 % (21.0-51.0); %Monocytes 9.8 % (0.0-10.0); %Neutrophils 68.1 % (42.0-75.0); Hematocrit 39.0 % (42.0-52.0); Hemoglobin 13.4 g/dL (14.0-18.0); Mean Corpuscular Hemoglobin 29.8 pg (27.0-31.0); Mean Corpuscular Volume 86.9 fL (78.0-98.0); Platelet Count 339 10x3/uL (130-400); Red Blood Cell (RBC) Count 4.49 mill/uL (4.70-6.10); White Blood Cell (WBC) Count 13.94 10x3/uL (4.8-10.8)
[2025-02-27 05:14] LABS: ALT (SGPT) 18 U/L (Less than 45); AST (SGOT) 14 U/L (11-34); Albumin 4.4 g/dL (3.1-4.5); Alkaline Phosphatase 62 U/L (40-110); Anion Gap 10 mmol/L (10-20); BUN (Urea Nitrogen) 7 mg/dL (8.9-20.6); Bilirubin, Total 0.7 mg/dL (0.3-1.2); Calc. Creatinine Clearance 189 mL/min (70-130); Calcium 8.7 mg/dL (7.8-10.44); Carbon Dioxide 26 mmol/L (22-29); Chloride 103 mmol/L (98-107); Globulin 2.5 g/dL (2.4-3.5); Glucose 132 mg/dL (70-105); Magnesium 2.0 mg/dL (1.6-2.6); Potassium 3.0 mmol/L (3.5-5.1); Sodium 136 mmol/L (136-145)
[2025-02-27] MEDS ORDERED: Potassium Chloride 40 MEQ in Premix 1 BAG IVPB SCH (06:30)
[2025-02-27] MEDS: Potassium Chloride 20 MEQ in Premix 1 BAG IVPB SCH ×2 (10:36→20:40)
[2025-02-27 13:19] LABS: Anion Gap 11 mmol/L (10-20); BUN (Urea Nitrogen) 5 mg/dL (8.9-20.6); Calc. Creatinine Clearance 194 mL/min (70-130); Calcium 8.5 mg/dL (7.8-10.44); Carbon Dioxide 26 mmol/L (22-29); Chloride 104 mmol/L (98-107); Glucose 102 mg/dL (70-105); Potassium 3.6 mmol/L (3.5-5.1); Sodium 137 mmol/L (136-145)
[2025-02-27] MEDS ORDERED: Potassium Chloride 20 MEQ in Premix 1 BAG IVPB SCH (16:30)
[2025-02-27 16:36] VITALS: BMI 28.8
[2025-02-27] MEDS: Ondansetron PF 4 MG/2 ML Vial IVP PRN (19:34)
[2025-02-27] MEDS: [UNRECOGNIZED DRUG - OTHER] SSW SCH (20:39)
[2025-02-27] MEDS: LIDOCAINE 2% SSW SCH (20:39)
[2025-02-27] MEDS: MAGNESIUM HYDROXIDE SSW SCH (20:39)
[2025-02-27 23:08] LABS: Cocaine Metabolite Screen Negative (Negative); THC/Cannabinoid Screen PRELIM POSITIVE (Negative); Tricyclic Screen Negative (Negative)
[2025-02-28 03:54] LABS: #Basophils 0.04 10x3/uL (0.0-0.2); #Eosinophils 0.09 10x3/uL (0.0-0.7); #Monocytes 1.15 10x3/uL (0.11-0.59); #Neutrophils 7.71 10x3/uL (1.40-6.50); %Basophils 0.3 % (0.0-1.0); %Eosinophils 0.8 % (0.0-10.0); %Lymphocytes 22.4 % (21.0-51.0); %Monocytes 9.9 % (0.0-10.0); %Neutrophils 66.3 % (42.0-75.0); Hematocrit 38.8 % (42.0-52.0); Hemoglobin 13.3 g/dL (14.0-18.0); Mean Corpuscular Hemoglobin 30.5 pg (27.0-31.0); Mean Corpuscular Volume 89.0 fL (78.0-98.0); Platelet Count 306 10x3/uL (130-400); Red Blood Cell (RBC) Count 4.36 mill/uL (4.70-6.10); White Blood Cell (WBC) Count 11.64 10x3/uL (4.8-10.8)
[2025-02-28 04:14] LABS: ALT (SGPT) 17 U/L (Less than 45); AST (SGOT) 12 U/L (11-34); Albumin 4.1 g/dL (3.1-4.5); Alkaline Phosphatase 59 U/L (40-110); Anion Gap 12 mmol/L (10-20); BUN (Urea Nitrogen) 5 mg/dL (8.9-20.6); Bilirubin, Total 0.6 mg/dL (0.3-1.2); Calc. Creatinine Clearance 155 mL/min (70-130); Calcium 8.9 mg/dL (7.8-10.44); Carbon Dioxide 26 mmol/L (22-29); Chloride 105 mmol/L (98-107); Globulin 2.7 g/dL (2.4-3.5); Glucose 101 mg/dL (70-105); Potassium 3.7 mmol/L (3.5-5.1); Sodium 139 mmol/L (136-145)
[2025-02-28] MEDS ORDERED: PROPOFOL ONE (11:59)
[2025-02-28 20:03] VITALS: BMI 28.5
[2025-02-28] MEDS: Transdermal Patch Removal TOP SCH (21:19)
[2025-03-01 03:55] LABS: #Basophils 0.05 10x3/uL (0.0-0.2); #Eosinophils 0.35 10x3/uL (0.0-0.7); #Monocytes 1.15 10x3/uL (0.11-0.59); #Neutrophils 8.38 10x3/uL (1.40-6.50); %Basophils 0.4 % (0.0-1.0); %Eosinophils 2.5 % (0.0-10.0); %Lymphocytes 29.8 % (21.0-51.0); %Monocytes 8.1 % (0.0-10.0); %Neutrophils 58.8 % (42.0-75.0); Hematocrit 38.7 % (42.0-52.0); Hemoglobin 13.0 g/dL (14.0-18.0); Mean Corpuscular Hemoglobin 30.5 pg (27.0-31.0); Mean Corpuscular Volume 90.8 fL (78.0-98.0); Platelet Count 314 10x3/uL (130-400); Red Blood Cell (RBC) Count 4.26 mill/uL (4.70-6.10); White Blood Cell (WBC) Count 14.24 10x3/uL (4.8-10.8)
[2025-03-01 04:31] LABS: ALT (SGPT) 16 U/L (Less than 45); AST (SGOT) 11 U/L (11-34); Albumin 4.0 g/dL (3.1-4.5); Alkaline Phosphatase 58 U/L (40-110); Anion Gap 13 mmol/L (10-20); BUN (Urea Nitrogen) 6 mg/dL (8.9-20.6); Bilirubin, Total 0.6 mg/dL (0.3-1.2); Calc. Creatinine Clearance 201 mL/min (70-130); Calcium 8.8 mg/dL (7.8-10.44); Carbon Dioxide 26 mmol/L (22-29); Chloride 104 mmol/L (98-107); Globulin 2.6 g/dL (2.4-3.5); Glucose 91 mg/dL (70-105); Potassium 3.8 mmol/L (3.5-5.1); Sodium 139 mmol/L (136-145)
[2025-03-02 04:34] LABS: #Basophils 0.06 10x3/uL (0.0-0.2); #Eosinophils 0.33 10x3/uL (0.0-0.7); #Monocytes 1.10 10x3/uL (0.11-0.59); #Neutrophils 9.24 10x3/uL (1.40-6.50); %Basophils 0.4 % (0.0-1.0); %Eosinophils 2.2 % (0.0-10.0); %Lymphocytes 26.6 % (21.0-51.0); %Monocytes 7.5 % (0.0-10.0); %Neutrophils 63.0 % (42.0-75.0); Hematocrit 39.9 % (42.0-52.0); Hemoglobin 13.5 g/dL (14.0-18.0); Mean Corpuscular Hemoglobin 29.8 pg (27.0-31.0); Mean Corpuscular Volume 88.1 fL (78.0-98.0); Platelet Count 323 10x3/uL (130-400); Red Blood Cell (RBC) Count 4.53 mill/uL (4.70-6.10); White Blood Cell (WBC) Count 14.68 10x3/uL (4.8-10.8)
[2025-03-02 05:02] LABS: ALT (SGPT) 16 U/L (Less than 45); AST (SGOT) 22 U/L (11-34); Albumin 4.0 g/dL (3.1-4.5); Alkaline Phosphatase 62 U/L (40-110); Anion Gap 15 mmol/L (10-20); BUN (Urea Nitrogen) 8 mg/dL (8.9-20.6); Bilirubin, Total 0.4 mg/dL (0.3-1.2); Calc. Creatinine Clearance 228 mL/min (70-130); Calcium 9.0 mg/dL (7.8-10.44); Carbon Dioxide 24 mmol/L (22-29); Chloride 106 mmol/L (98-107); Globulin 2.7 g/dL (2.4-3.5); Glucose 91 mg/dL (70-105); Potassium 3.6 mmol/L (3.5-5.1); Sodium 141 mmol/L (136-145)
[2025-03-02 12:34] VITALS: BP 118/83; TEMP 97.9
== END 2025-03-02 14:30 | disposition home or self-care (01) | DRG 392 ==
LOC: ERS 16:40 → 2SE 18:34 → OBSVTOIN 02-28 08:31
PROVIDERS: ADMIT Family Medicine; ATTEND Family Medicine
PROC: 0DB58ZX Excision of Esophagus, Via Natural or Artificial Opening Endoscopic, Diagnostic (ICD-10-PCS; principal; 2025-02-28)
DX: R11.2 Nausea with vomiting, unspecified (principal); F41.9 Anxiety disorder, unspecified; F12.10 Cannabis abuse, uncomplicated; E87.6 Hypokalemia; K31.89 Other diseases of stomach and duodenum; K44.9 Diaphragmatic hernia without obstruction or gangrene; Z98.890 Other specified postprocedural states; Z90.89 Acquired absence of other organs; Z79.899 Other long term (current) drug therapy
CPT/HCPCS: 36415; 80053; 80306; 83690; 83735; 84100; 85025; 88305; 88342; 93005; 96375; 96376; G0378; J2250; J2405; J2470; J2704; J2765; J3480; J7120